=== PATIENT | female | born 1975 | race Caucasian/White ===

== ENCOUNTER 2023-02-07 20:01 | Emergency (ER) | payer BC, SELFPAY ==
[2023-02-07 20:03] VITALS: BP 124/84; PULSE 94; RESP 16; TEMP 36.8; O2SAT 99; BMI 21.7
--- NOTE | 2023-02-07 21:04 | XR_ITS ---
PROCEDURE INFORMATION: Exam: XR Right Foot Exam date and time: 02/07/2023 9:28 PM Age: 47 years old Clinical indication: Injury or trauma; Other: Lawnmower accident; Additional info: Lawnmower vs 2nd-5th digits TECHNIQUE: Imaging protocol: Radiologic exam of the right foot. Views: 3 or more views. COMPARISON: No relevant prior studies available. FINDINGS: Bones/joints: Suspected nondisplaced fracture through the 3rd through 5th distal phalanges. Soft tissues: Normal. IMPRESSION: Suspected nondisplaced fracture through the 3rd through 5th distal phalanges.
--- NOTE | 2023-02-07 21:25 | HMH.EDGENADL ---
Discharge Plan Disposition Patient Disposition: Home, Self-Care Prescriptions Prescriptions: New cefdinir 300 mg capsule 300 mg PO BID 5 Days Qty: 10 0RF Referrals Follow up/Referrals: Provider,Referral, MD [Primary Care Provider] - See instructions Activity Restrictions/Add. Instructions Additional Instructions/Restrictions: Call your family doctor to establish care for this visit to the emergency department and schedule follow-up within 48 hours to ensure improvement. If you have any worsening of your condition or any other concerning signs or symptoms, return to the emergency department or your primary care doctor for further evaluation. Antibiotic twice daily for 5 days Clinical Impressions Clinical Impression: Open fracture of toe of right foot Discharge ED Provider: Shubham Duque General Adult HPI General Chief complaint: Extremity Injury, Lower Stated complaint: AO10/@1945 RT pinky toe lac Time Seen by Provider: 02/07/23 20:04 Mode of Arrival: Ambulatory Limitations: No Limitations Description of Symptoms (Recalled from ER Triage Doc. by RN): Pt states she was pusing a push mower and her foot got caught under it. Injury to right pinky toe. History of Present Illness HPI narrative: 47-year-old female history of hypothyroidism presenting with foot injury. Patient states that she was walking backwards while cutting the grass, foot went under the lawnmower. Patient had immediate pain and bleeding. Came to the ER for further evaluation. Able to move all digits. Last tetanus shot was 2 years ago Related Data Previous Rx's Medication Instructions Recorded cefdinir 300 mg capsule 300 mg PO BID 5 days #10 caps 02/07/23 Allergies Allergy/AdvReac Type Severity Reaction Status Date / Time Penicillins Allergy Verified 02/07/23 22:32 [facility] Disclaimer: The information contained in this section may have been updated after the patient was seen, as this information can be updated by other users. Social History Smoking Status: Unknown if ever smoked alcohol intake: never current occupational status: unemployed Travel in the last 8 weeks: None ROS Obtained: Yes All systems reviewed & no additional complaints except as documented Physical Exam General General appearance: alert and in no apparent distress Head Head exam: atraumatic and normocephalic Eye Eye exam: Present normal appearance, PERRL and EOMI ENT ENT exam: Present mucous membranes moist Neck Neck exam: Present normal inspection, full ROM and trachea midline Respiratory Respiratory exam: Absent respiratory distress, wheezes, stridor, accessory muscle use or prolonged expiratory phase Cardiovascular Cardiovascular exam: Present normal rhythm Abdominal Exam Abdominal exam: Present soft; Absent distention, tenderness, guarding, rebound, rigidity or normal bowel sounds Extremities Exam Extremities exam: Present other (Tenderness, bruising over second through fifth digits on right foot. Flexion extension present. Patient has small avulsion of right fifth toenail.); Absent edema Neurological Exam Neurological exam: Present alert, oriented X3, CN II-XII intact and normal gait; Absent motor sensory deficit Skin Skin exam: Present warm and dry; Absent diaphoresis or erythema Medical Decision Making Medical Records Medical records reviewed: Yes I reviewed the patient's medical records. Aureliano Inquiry Pt receiving controlled substance: No Aureliano was queried for this patient: No Vital Signs: 02/07/23 20:03 Temperature 98.2 F Temperature Source Oral Pulse Rate [Right Radial] 94 H Respiratory Rate 16 Blood Pressure [Right Arm] 124/84 Blood Pressure Mean [Right Arm] 97 Blood Pressure Source [Right Arm] Automatic Cuff Blood Pressure Position [Right Arm] Sitting 02 Sat by Pulse Oximetry 99 Oxygen Delivery Method Room Air Orders (Tests/Meds): ED MEDICATIONS Generic Name Dose Route Start Last Admin Trade N
--- NOTE | 2023-02-07 23:35 | PC.NURSE ---
Pt right foot wrapped with non adherent bandage and curlex. Orthopedic shoe applied.
[2023-02-07 23:38] VITALS: BP 111/73; PULSE 63; RESP 20; TEMP 36.7; O2SAT 99
== END 2023-02-07 23:39 | disposition home or self-care (01) ==
PROVIDERS: Emergency Provider Emergency Medicine
DX: S92.911B Unspecified fracture of right toe(s), initial encounter for open fracture (principal); W28.XXXA Contact with powered lawn mower, initial encounter
CPT/HCPCS: 73630; 96365; 99284; J0696

== ENCOUNTER 2023-08-22 16:15 | Emergency (ER) | payer BC, SELFPAY ==
[2023-08-22 16:25] VITALS: BP 119/80; PULSE 69; RESP 18; TEMP 36.6; O2SAT 100; BMI 22.2
[2023-08-22 16:52] LABS: UTC Influenza A Antigen Negative (Negative); UTC Influenza B Antigen Negative (Negative)
--- NOTE | 2023-08-22 17:22 | EXP.UTC ---
Discharge Plan Disposition Patient Disposition: Home, Self-Care Condition: Good Prescriptions Prescriptions: New ondansetron 4 mg Tablet,Disintegrating 4 mg PO Q8H PRN (Reason: Nausea) Qty: 12 0RF Referrals Follow up/Referrals: Guillermo Duncan [Primary Care Provider] - See instructions Activity Restrictions/Add. Instructions Additional Instructions/Restrictions: Drink plenty of fluids. Take tylenol or ibuprofen for pain or fever. Take the medications as directed if you have nausea. Follow up with your regular doctor. GO TO THE ER FOR ANY WORSENING SYMPTOMS Clinical Impressions Clinical Impression: Acute viral syndrome Stand Alone Forms Stand Alone Forms: Work/School Release Instructions Patient Instructions: DI for Viral Syndrome Discharge ED Provider: Brandon Li [facility] General Stated complaint: Fever,Chills, bilateral leg pain no injury Mode of Arrival: Ambulatory Source of Information: Patient Limitations: No Limitations Time Seen by Provider: 08/22/23 17:22 Description of Symptoms (Recalled from Triage Doc. by RN): Pt's symptoms are fever, chills, body aches, fatigue, and chest pressure. She denies chest pain, cardiac issues, and stated its mid sternum and denies it radiating. HEENT Symptoms (Recalled from RN notes): Yes Resp Symptoms (Recalled from RN notes): No Skin Symptoms (Recalled from RN notes): No MS Symptoms (Recalled from RN notes): No Functional Status (Recalled from RN notes): n/a History of Present Illness Provider Complaint: She states that for the past 1 day she has had fever up to 102, malaise, body aches, bilateral leg pain, and intermittent chest pain. Her pain is worse when she breathes deeply or cough. She denies significant congestion and shortness of breath. Related Data Previous Rx's Medication Instructions Recorded ondansetron 4 mg disintegrating 4 mg PO Q8H PRN Nausea #12 tabs 08/22/23 tablet Allergies Allergy/AdvReac Type Severity Reaction Status Date / Time Penicillins Allergy Verified 08/22/23 16:43 Worker's Comp Is this a Worker's Comp case?: No [facility] Disclaimer: The information contained in this section may have been updated after the patient was seen, as this information can be updated by other users. Social History (Updated 02/07/23 @ 23:22 by Shubham Duque MD) Smoking Status: Unknown if ever smoked alcohol intake: never current occupational status: unemployed Travel in the last 8 weeks: None ROS Obtained: Yes All systems reviewed & no additional complaints except as documented Constitutional Constitutional: Reports chills and Reports fever(s) Eyes Eyes: Denies eye discharge ENT Ears, Nose, Mouth, and Throat: Reports as per HPI Cardiovascular Cardiovascular: Reports as per HPI and Reports chest pain Respiratory Respiratory: Denies chest congestion and Reports cough Gastrointestinal Gastrointestingal: Reports nausea; Denies abdominal pain, constipation, cramping, diarrhea or vomiting Musculoskeletal Musculoskeletal: Denies arthralgias Integumentary/Breasts Skin/Breast: Denies rash Neurologic Neurologic: Denies paresthesias Physical Exam General General appearance: alert and in no apparent distress Head Head exam: atraumatic, normocephalic and normal inspection Eye Eye exam: Present normal appearance, PERRL and EOMI ENT ENT exam: Present normal exam, normal oropharynx, mucous membranes moist, TM's normal bilaterally and normal external ear exam Neck Neck exam: Present normal inspection, full ROM and trachea midline; Absent meningismus or lymphadenopathy Chest Chest inspection: Present normal inspection and symmetric chest wall rise; Absent tenderness Respiratory Respiratory exam: Present normal lung sounds bilaterally; Absent respiratory distress Cardiovascular Cardiovascular exam: Present regular rate and normal rhythm; Absent JVD Abdominal Exam Abdominal exam: Present soft and normal bowel sounds; Absent distention, tenderness or guarding Extremities Exam Extremities exam: Present normal inspection, full ROM and normal capillary refill; Absent calf tenderness Back Exam Back exam: Present normal inspection; Absent tenderness Neurological Exam Neurological exam: Present alert and oriented X3 Psychiatric Psychiatric exam: Present normal affect and normal mood Skin Skin exam: Present warm, dry, intact and normal color Lymphatic Lymphatic Findings: no adenopathy Medical Decision Making Medical Records Medical records reviewed: No I reviewed the patient's medical records. Aureliano Inquiry Pt receiving controlled substance: No Vital Signs: 08/22/23 16:25 Temperature 97.8 F Temperature Source Oral Pulse Rate [Right Radial] 69 Respiratory Rate 18 Blood Pressure [Right Arm] 119/80 Blood Pressure Mean [Right Arm] 93 Blood Pressure Source [Right Arm] Automatic Cuff Blood Pressure Position [Right Arm] Sitting 02 Sat by Pulse Oximetry 100 Oxygen Delivery Method Room Air Lab Data Lab results reviewed: Yes I reviewed the patient's lab results. Lab Results 08/22/23 16:33: Influenza Type A Ag Negative, Influenza Type B Ag Negative Radiology Data #1: Image(s): Chest Image Reviewed: Yes I reviewed the patient's radiology image and Yes I have reviewed radiologist's interpretation Preliminary Findings: Normal/NAD and No Infiltrates Seen PROCEDURE INFORMATION: Exam: XR Chest Exam date and time: 08/22/2023 5:32 PM Age: 47 years old Clinical indication: Pain; Chest pressure; Additional info: Congestion, fever, chest pain TECHNIQUE: Imaging protocol: Radiologic exam of the chest. Views: 2 views. COMPARISON: No relevant prior studies available. FINDINGS: Lungs: Unremarkable. No consolidation. Pleural spaces: Unremarkable. No pleural effusion. No pneumothorax. Heart/Mediastinum: Unremarkable. No cardiomegaly. Bones/joints: Unremarkable. IMPRESSION: No acute findings. Data Tracing #1: I reviewed this ECG and interpreted as documented below: nsr @ 62 ECG initial impression date: 08/22/23 ECG initial impression time: 18:26 ECG normal with no acute: arrhythmias, ischemia, conduction abnormalities, chamber hypertrophy Normal Sinus Rhythm: Yes
--- NOTE | 2023-08-22 17:35 | XR_ITS ---
PROCEDURE INFORMATION: Exam: XR Chest Exam date and time: 08/22/2023 5:32 PM Age: 47 years old Clinical indication: Pain; Chest pressure; Additional info: Congestion, fever, chest pain TECHNIQUE: Imaging protocol: Radiologic exam of the chest. Views: 2 views. COMPARISON: No relevant prior studies available. FINDINGS: Lungs: Unremarkable. No consolidation. Pleural spaces: Unremarkable. No pleural effusion. No pneumothorax. Heart/Mediastinum: Unremarkable. No cardiomegaly. Bones/joints: Unremarkable. IMPRESSION: No acute findings.
--- NOTE | 2023-08-22 18:04 | ECG_ITS ---
APPROVED REPORT Exam: Resting ECG HR:64 bpm ECG Measurements Heart Rate 64 AXES [place] 133 P 73 QRSd 88 QRS 74 QT 392 T 78 QTc 401 Conclusion SINUS RHYTHM MINIMAL ST DEPRESSION [0.025+ mV ST DEPRESSION] BORDERLINE ECG UNCONFIRMED REPORT Electronically signed by : Gonzalo Montenegro MD 08/23/2023 15:52:44
--- NOTE | 2023-08-22 18:05 | ECG_ITS ---
APPROVED REPORT Exam: Resting ECG HR:67 bpm ECG Measurements Heart Rate 67 AXES [place] 130 P 73 QRSd 86 QRS 72 QT 397 T 76 QTc 412 Conclusion SINUS RHYTHM PAC noted Previously noted STTW changes O/w NORMAL ECG UNCONFIRMED REPORT Electronically signed by : Gonzalo Montenegro MD 08/23/2023 15:52:38
[2023-08-22 18:25] LABS: Coronavirus 19, PCR Not Detected (NotDetected); Influenza A, PCR Not Detected (NotDetected); Influenza B, PCR Not Detected (NotDetected)
[2023-08-22 18:32] VITALS: BP 119/80; PULSE 69; RESP 18; TEMP 36.6; O2SAT 100
--- NOTE | 2023-08-22 18:32 | PC.NURSE ---
Sent rapid covid flu to lab via tube system
== END 2023-08-22 18:32 | disposition home or self-care (01) ==
PROVIDERS: Emergency Provider Nurse Practitioner Family; PCP Pediatrics
DX: R07.1 Chest pain on breathing (principal); R50.9 Fever, unspecified; M79.604 Pain in right leg; M79.605 Pain in left leg
CPT/HCPCS: 71046; 87636; 87804; 93005; 99204; 99212; G0463